=== PATIENT | female | born 1940 | race Caucasian/White ===

== ENCOUNTER 2018-09-09 09:39 | Outpatient (REF) | payer OTHER, SELFPAY ==
[2018-09-09 22:07] LABS: Cholesterol 202 mg/dL (50-200); HDL Cholesterol 71 mg/dL (40-60); LDL CHOLESTEROL 119 mg/dL (<100); TSH 5.15 uIU/mL (0.358-3.74); Triglyceride 32 mg/dL (30-150)
== END 2018-09-09 09:59 ==
LOC: NCHCN 09:39
PROVIDERS: PCP Internal Medicine; Visit Provider Internal Medicine
DX: E03.9 Hypothyroidism, unspecified (principal); Z13.6 Encounter for screening for cardiovascular disorders
CPT/HCPCS: 80061; 83721; 84443

== ENCOUNTER 2019-07-19 21:30 | Outpatient (REF) | payer OTHER, SELFPAY ==
[2019-07-19 21:43] LABS: TSH 18.76 uIU/mL (0.36-3.74)
== END 2019-07-19 21:50 ==
LOC: LBN 21:30
PROVIDERS: PCP Internal Medicine; Visit Provider Internal Medicine
DX: E03.9 Hypothyroidism, unspecified (principal)
CPT/HCPCS: 84443

== ENCOUNTER 2019-08-26 00:34 | Outpatient (CLI) | payer OTHER, SELFPAY ==
--- NOTE | 2019-08-26 | DI.CT_ITS ---
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 COMPARISON: No exams were available for comparison FINDINGS: The patient reportedly has atypical mycobacterial infection. Images obtained through the upper abdom en show unremarkable appearance of visualized portions of liver, spleen, adrenals, and kidneys. Cardiac size is within normal limits. No significant mediastinal or hilar adenopathy seen. No pleur al effusion. No pneumothorax. There are biapical areas of predominantly linear reticulonodular radiodensities with multiple associa edgard calcifications. The findings are consistent with mycobacterial infection. There are areas of tr ee-in-bud opacities and reticular and nodular radiodensities seen in the left lung base involving bot h lower lobe and lingula. There appears to be bronchiectasis associated with these areas. Tree-in-b ud opacities are also seen in the right lower lobe, particularly posteriorly, and also in the right m iddle lobe with reticulonodular radiodensities in these areas. Mild underlying central lobular emphy sema noted. No gross lobar consolidation. The largest intrapulmonary nodule is in the left lung bas e posteriorly and measures about 7 millimeters in diameter; this is most likely associated with infec tious process but should be followed with repeat chest CT after treatment. IMPRESSION: Multifocal reticulonodular and tree-in-bud opacities as described above, the findings as described ar e consistent with atypical mycobacterial infection. Follow-up chest CT recommended following treatment to re-evaluate 7 millimeter nodular left lower lob e posterior basilar radiodensity.
== END 2019-08-26 00:54 ==
PROVIDERS: PCP Internal Medicine; Visit Provider Internal Medicine
DX: A31.0 Pulmonary mycobacterial infection (principal); J98.4 Other disorders of lung; J43.8 Other emphysema
CPT/HCPCS: 71250

== ENCOUNTER 2019-09-03 11:17 | Outpatient (CLI) | payer OTHER, SELFPAY ==
[2019-09-03 13:21] LABS: ALT 57 U/L (14-59); AST 33 U/L (15-37); Albumin 3.3 g/dL (3.4-5.0); Alkaline Phosphatase 93 U/L (46-116); Bilirubin, Direct 0.08 mg/dL (0.00-0.20); Bilirubin, Total 0.4 mg/dL (0.2-1.0); Total Protein 6.7 g/dL (6.4-8.2)
== END 2019-09-03 11:37 ==
PROVIDERS: PCP Internal Medicine; Visit Provider Internal Medicine
DX: A31.9 Mycobacterial infection, unspecified (principal); J98.4 Other disorders of lung
CPT/HCPCS: 36415; 80076; 93005; 93010

== ENCOUNTER 2019-10-07 14:26 | Outpatient (REF) | payer OTHER, SELFPAY ==
[2019-10-07 20:31] LABS: TSH 0.09 uIU/mL (0.36-3.74)
== END 2019-10-07 14:46 ==
LOC: NCHCN 14:26
PROVIDERS: PCP Internal Medicine; Visit Provider Internal Medicine
DX: E03.9 Hypothyroidism, unspecified (principal)
CPT/HCPCS: 84443

== ENCOUNTER 2019-11-19 14:14 | Outpatient (REF) | payer OTHER, SELFPAY ==
[2019-11-19 21:03] LABS: Abs Immature Grans 0.01 k/cumm (0.0-0.09); Absolute Basophil Count 0.02 k/cumm (0.0-0.2); Absolute Eosinophil Count 0.12 k/cumm (0.0-0.7); Absolute Lymphocyte Count 1.61 k/cumm (1.2-3.4); Absolute Neutrophil Count 2.35 k/cumm (1.2-6.7); Basophils % 0.4; Eosinophils % 2.5; HCT 40.3 % (36.0-46.0); HGB 13.3 g/dL (12.0-15.5); Immature Grans % 0.2 %; Lymphocytes % 33.5; Mean Corpuscular Hemoglobin 31.2 pg (27.0-33.0); Mean Corpuscular Volume 94.6 fL (80-95); Mean Platelet Volume 11.4 fL (8.0-11.0); Monocytes % 14.6; Neutrophils % 48.8; Platelet Count 170 x1000/uL (130-400); RBC 4.26 m/cumm (4.00-5.20); White Blood Cell Count 4.81 k/cumm (4.4-10.8)
[2019-11-19 21:25] LABS: ALT 48 U/L (14-59); AST 31 U/L (15-37); Albumin 3.5 g/dL (3.4-5.0); Alkaline Phosphatase 76 U/L (46-116); Bilirubin, Direct 0.25 mg/dL (0.00-0.20); Bilirubin, Total 0.7 mg/dL (0.2-1.0); Total Protein 6.4 g/dL (6.4-8.2)
== END 2019-11-19 14:34 ==
LOC: NCHCN 14:14
PROVIDERS: PCP Internal Medicine; Visit Provider Internal Medicine
DX: A31.0 Pulmonary mycobacterial infection (principal)
CPT/HCPCS: 80076; 85025

== ENCOUNTER 2019-12-07 15:18 | Outpatient (REF) | payer OTHER, SELFPAY ==
[2019-12-07 20:54] LABS: TSH 0.68 uIU/mL (0.36-3.74)
== END 2019-12-07 15:38 ==
LOC: NCHCN 15:18
PROVIDERS: PCP Internal Medicine; Visit Provider Internal Medicine
DX: E03.9 Hypothyroidism, unspecified (principal)
CPT/HCPCS: 84443

== ENCOUNTER 2020-05-31 11:09 | Outpatient (REF) | payer OTHER, SELFPAY | END 2020-05-31 11:29 | LOC: NCHCN 11:09 | PROVIDERS: PCP Internal Medicine; Visit Provider Internal Medicine | DX: E03.9 Hypothyroidism, unspecified (principal) | CPT/HCPCS: 84443 ==

== ENCOUNTER 2020-07-17 15:47 | Outpatient (REF) | payer OTHER, SELFPAY ==
[2020-07-17 14:42] LABS: TSH 0.26 uIU/mL (0.36-3.74)
== END 2020-07-17 15:48 | disposition home or self-care (01) ==
LOC: NCHCN 15:47
PROVIDERS: PCP Internal Medicine; Visit Provider Internal Medicine
DX: E03.9 Hypothyroidism, unspecified (principal)
CPT/HCPCS: 84443

== ENCOUNTER 2020-09-20 13:20 | Outpatient (REF) | payer OTHER, SELFPAY ==
[2020-09-20 13:46] LABS: TSH 0.47 uIU/mL (0.36-3.74)
== END 2020-09-20 13:21 | disposition home or self-care (01) ==
LOC: NCHCN 13:20
PROVIDERS: PCP Internal Medicine; Visit Provider Internal Medicine
DX: E03.9 Hypothyroidism, unspecified (principal)
CPT/HCPCS: 84443

== ENCOUNTER 2020-09-25 15:08 | Outpatient (REF) | payer OTHER, SELFPAY ==
[2020-09-25 21:18] LABS: Abs Immature Grans 0.01 10^3/uL (0.0-0.06); Absolute Basophil Count 0.03 10^3/uL (0.0-0.2); Absolute Eosinophil Count 0.13 10^3/uL (0.0-0.7); Absolute Lymphocyte Count 1.15 10^3/uL (1.2-3.4); Absolute Monocyte Count 0.67 10^3/uL (0.1-0.8); Absolute Neutrophil Count 4.07 10^3/uL (1.2-6.7); Basophils % 0.5; Eosinophils % 2.1; HCT 39.7 % (36.0-46.0); HGB 13.1 g/dL (11.2-15.7); Immature Grans % 0.2; MCH 32.5 pg (27.0-33.0); MCV 98.5 fL (80-95); MPV 11.6 fL (8.0-11.0); Monocytes % 11.1; Neutrophils % 67.1; Nucleated RBC 0 %; Platelet Count 138 10^3/uL (130-400); RBC 4.03 10^6/uL (3.93-5.22); RDW 12.6 % (11.7-14.6); RDW-SD 45.9 fL; WBC 6.06 10^3/uL (4.4-10.8)
[2020-09-25 21:52] LABS: Vitamin D 25 Total 46.8 ng/mL (30-100)
[2020-09-25 21:53] LABS: Ferritin 64 ng/mL (8-252); Vitamin B12 865 pg/mL (193-986)
== END 2020-09-25 15:09 | disposition home or self-care (01) ==
LOC: NCHCN 15:08
PROVIDERS: PCP Internal Medicine; Visit Provider Internal Medicine
DX: F32.9 Major depressive disorder, single episode, unspecified (principal); R53.83 Other fatigue; M81.0 Age-related osteoporosis without current pathological fracture; R06.09 Other forms of dyspnea
CPT/HCPCS: 82306; 82607; 82728; 85025

== ENCOUNTER 2021-06-18 18:18 | Outpatient (REF) | payer OTHER, SELFPAY ==
[2021-06-18 21:24] LABS: Abs Immature Grans 0.02 10^3/uL (0.0-0.06); Absolute Basophil Count 0.03 10^3/uL (0.0-0.2); Absolute Eosinophil Count 0.09 10^3/uL (0.0-0.7); Absolute Lymphocyte Count 1.61 10^3/uL (1.2-3.4); Absolute Monocyte Count 0.74 10^3/uL (0.1-0.8); Absolute Neutrophil Count 3.84 10^3/uL (1.2-6.7); Basophils % 0.5; ESR 5 mm/hr (0-30); Eosinophils % 1.4; HCT 41.2 % (36.0-46.0); HGB 13.4 g/dL (11.2-15.7); Immature Grans % 0.3; Lymphocytes % 25.4; MCH 31.6 pg (27.0-33.0); MCHC 32.5 % (32.0-36.0); MCV 97.2 fL (80-95); MPV 11.4 fL (8.0-11.0); Monocytes % 11.7; Neutrophils % 60.7; Nucleated RBC 0 %; Platelet Count 183 10^3/uL (130-400); RBC 4.24 10^6/uL (3.93-5.22); RDW 12.8 % (11.7-14.6); RDW-SD 45.4 fL; WBC 6.33 10^3/uL (4.4-10.8)
[2021-06-18 22:05] LABS: ALT 58 U/L (14-59); AST 32 U/L (15-37); Albumin 3.4 g/dL (3.4-5.0); Alkaline Phosphatase 66 U/L (46-116); Anion Gap 3.9 mmol/L (3-11); BUN 23 mg/dL (7-18); Bilirubin, Total 0.2 mg/dL (0.2-1.0); C-Reactive Protein 0.11 mg/dL (0.0-0.3); CO2 30.1 mmol/L (21.0-32.0); CREATININE 0.5 mg/dL (0.55-1.02); Calcium 8.8 mg/dL (8.5-10.1); Chloride 109 mmol/L (98-107); Glucose 90 mg/dL (74-106); Potassium 4.3 mmol/L (3.5-5.1); Sodium 143 mmol/L (136-145); TSH (W/Ref FT4) 0.08 uIU/mL (0.36-3.74); Total Protein 6.4 g/dL (6.4-8.2)
[2021-06-18 22:21] LABS: FREE T4 1.49 ng/dL (0.76-1.46)
[2021-06-20 16:49] LABS: COVID-19 RT-PCR UVMMC Result Negative (Negative)
== END 2021-06-18 18:19 | disposition home or self-care (01) ==
LOC: NCHCN 18:18
PROVIDERS: PCP Internal Medicine; Visit Provider Family Medicine
DX: R19.7 Diarrhea, unspecified (principal); Z20.822 Contact with and (suspected) exposure to COVID-19; J06.9 Acute upper respiratory infection, unspecified
CPT/HCPCS: 80053; 85652; U0003; 84439; 84443; 85025; 86140

== ENCOUNTER 2021-08-20 16:16 | Outpatient (REF) | payer OTHER, SELFPAY ==
[2021-08-20 22:05] LABS: TSH 0.05 uIU/mL (0.36-3.74)
== END 2021-08-20 16:17 | disposition home or self-care (01) ==
LOC: NCHCN 16:16
PROVIDERS: PCP Internal Medicine; Visit Provider Family Medicine
DX: E03.9 Hypothyroidism, unspecified (principal)
CPT/HCPCS: 84443

== ENCOUNTER 2021-08-30 15:31 | Outpatient (REF) | payer MEDICARE, SELFPAY ==
--- OUTSIDE RECORDS SUMMARY | 2021-08-30 15:34 | XMS_ITS | CCD ---
:1940 Author Care Team Providers Name Role Phone ELISEO HENLEY Attending Physician Unavailable Vital Signs Unknown or Not Available. Allergies Allergy Code Allergy Type Reaction Status No Known Environmental 0 No known environmental Active Allergies allergies AZITHROMYCIN 12958 Drug allergy Hives Active Procedures Unknown or Not Available. History of Immunizations Unknown or Not Available. Problems Unknown or Not Available. Results CREATININE SERUM - Collect Date/Time: 15:17 Test Name Code Test Result Test Units Test Ref Range CREATININE 2160-0 0.59 mg/dL L=0.51 H=0.95 AGE 80 years eGFR (non-Afr.Amer.) 54825-0 99 mL/min eGFR (Afr-[place] Korean) 40767-3 119 mL/min CBC W/ DIFFERENTIAL - Collect Date/Time: 02/06/2021 15:17 Test Name Code Test Result Test Units Test Ref Range WBC 6690-2 5.46 th/cmm L=5.00 H=10.00 NEUT % 58.1 % L=40.0 H=80.0 LYMPH % 26.9 % L=10.0 H=50.0 MONO % 73637-6 9.9 % L=2.0 H=12.0 EOS % 4.2 % L=0.0 H=8. 0 BASO % 0.7 % L=0.0 H=3. 0 IG % 2514-8 0.2 % L=0.0 H=1. 1 NRBC % 67093-1 0.0 % L=0.0 H=0. 0 NEUT abs count 751-8 3.2 th/cmm L=1.6 H= 8.4 LYMPH abs count 731-0 1.5 th/cmm L=1.5 H =4.0 MONO abs count 742-7 0.5 th/cmm L=0.2 H= 1.0 EOS abs count 711-2 0.2 th/cmm L=0.0 H=0 .5 BASO abs count 704-7 0.0 th/cmm L=0.0 H= 0.2 IG abs count 42570-1 0.0 th/cmm L=0.0 H=0. 1 NRBC abs count 67086-6 0.0 mil/cmm L=0.0 H= 0.0 RBC 789-8 4.12 mil/cmm L=3.90 H=5.40 HEMOGLOBIN 718-7 13.4 gm/dL L=12.0 H=16.0 HEMATOCRIT 4544-3 40 % L=37 H=47 MCV 787-2 98 fL L=82 H=92 MCH 785-6 32.5 pg L=27.0 H=31.0 MCHC 786-4 33.2 % L=32.0 H=36.0 RDW-SD 788-0 46.5 fL L=39.0 H=49.0 PLATELET COUNT 777-3 115 th/cmm L=150 H= 450 PT PROTHROMBIN TIME - Collect Date/Time: 02/06/2021 15:17 Test Name Code Test Result Test Units Test Ref Range PROTIME 5902-2 10.5 seconds L=9.3 H=11 .4 INR 10345-3 1.03 L=2.00 H=3. 00 Active Medications Unknown or Not Available. Medications Administered During Visit Unknown or Not Available. Encounters Encounter Diagnosis Diagnosis Code Start Date Mycobacteriosis [id number] 02/06/2021 Social History Smoking Status Code Start Date End Date Former smoker [id number] 06/09/1957 06/09/1991 Patient Decision Aids Unknown or Not Available. Discharge Instructions You were admitted to [facility] on 02/06/2021 10:52 with a principal diagnosis of Mycobacterial infection, un specified You had the following tests done: CBC W/ DIFFERENTIAL CREATININE SERUM PT PROTHROMBIN TIME You were discharged from [facility] on 02/06/2021 10:52 Should you have any questions prior to d ischarge, please contact a member of your healthcare team. If you have left the ho spital and have any questions, please contact your primary care physician. Chief Complaint and Reason For Visit Unknown or Not Available. Function Status Unknown or Not Available. Plan of Care Unknown or Not Available. Referral/Transition of Care Unknown or Not Available.
--- OUTSIDE RECORDS SUMMARY | 2021-08-30 15:34 | XMS_ITS | CCD ---
:1940 Author Care Team Providers Name Role Phone ELISEO HENLEY Attending Physician Unavailable Vital Signs Unknown or Not Available. Allergies Allergy Code Allergy Type Reaction Status No Known Environmental 0 No known environmental Active Allergies allergies AZITHROMYCIN 08913 Drug allergy Hives Active Procedures Unknown or Not Available. History of Immunizations Unknown or Not Available. Problems Unknown or Not Available. Results Unknown or Not Available. Active Medications Unknown or Not Available. Medications Administered During Visit Unknown or Not Available. Encounters Encounter Diagnosis Diagnosis Code Start Date Encounter for preprocedural cardiovascular [id number] 02/06/2021 examination Social History Smoking Status Code Start Date End Date Former smoker [id number] 06/09/1957 06/09/1991 Patient Decision Aids Unknown or Not Available. Discharge Instructions You were admitted to [facility] on 02/06/2021 14:43 with a principal diagnosis of Encounter for preprocedural cardiovascular examination You were discharged from [facility] on 02/06/2021 14:43 Should you have any questions prior to [...]
--- OUTSIDE RECORDS SUMMARY | 2021-08-30 15:34 | XMS_ITS ---
:1940 Author Care Team Providers Name Role Phone [facility] Primary Care Provider [phone] AMI CHURCHILL DO [employer] Machine Operator [phone] Allergies Code Code System Name Reaction Severity Status Onset Bee Venom ? ? Active ? Protein (Honey Bee) 09337 RxNorm Azithromycin ? ? Deactivated ? Medications Name Status Start Date Stop Date ? ? albuterol sulfate 2.5 mg/3 mL (0.083 %) solution for nebulizatio n Active ? Not available Inhale 3 mL every day by nebulization route as needed. alendronate 70 mg tablet Active ? Not jigar ilable clarithromycin 500 mg tablet Completed ? escitalopram 10 mg tablet Completed ? 2019 escitalopram 20 mg tablet Active ? Not av ailable Take 1 tablet every day by oral route. ethambutol 400 mg tablet Active ? Not jigar ilable Take 3 tablets 3 times a week by oral route. Flonase Allergy Relief 50 mcg/actuation nasal spray,suspension A ctive ? Not available SPRAY 1 - 2 SPRAYS (50 - 100 MCG) IN EA CH NOSTRIL BY INTRANASAL ROUTEONCE DAILY NEEDED Fluad 2017- 65yr up(PF)45 mcg(15 Completed ? 02/05/2019 mcgx3)/0.5 mL intramuscular syringe Flucelvax Quad 60 mcg (15 mcg Active ? Not available x 4)/0.5 mL intramuscular susp GaviLyte-G 236 gram-22.74 gram-6.74 Completed ? 02/05/2019 gram-5.86 gram oral solution Hyper-Monroe 7 % solution for nebulization Active ? Not available Inhale 4 mL twice a day by inhalation route. levothyroxine 137 mcg tablet Completed ? levothyroxine 150 mcg tablet Active ? Not available Take 1 tablet every day by oral route. Mucinex 600 mg tablet, extended release Completed ? 04/14/2020 Take 1 tablet every 12 hours by oral route as needed. multivitamin Active ? Not available 1 tab daily mupirocin 2 % topical ointment Completed ? 0 02/05/2019 rifampin 300 mg capsule Active ? Not avai lable Take 2 capsules 3 times a week by oral route. Shingrix (PF) 50 mcg/0.5 mL Completed ? 01/09 intramuscular suspension, kit Vitamin C 500 mg tablet Active ? Not avai lable Take 1 tablet every day by oral route. Zithromax 500 mg tablet Active ? Not avai lable Take 1 tablet 3 times a week by oral route for 3 days. Problems Name Status Onset Date Source ? Rhinitis Active 01/28/2019 ? Posterior Rhinorrhea Active 01/28/2019 ? Ulcer of Nasal Septum Active 01/28/2019 ? Chronic Cough Active 01/28/2019 ? 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 Infection Bronchiectasis Active 10/08/2019 ? Carcinoma in Situ of Breast Active ? ? Hypothyroidism Active ? ? Anxiety Active ? ? Depressive Disorder Active ? ? Kidney Stone Active ? ? Osteoporosis Active ? ? Procedures Date Name Performed by ? ? Lumpectomy of Left Breast Information no t available 02/05/2019 CT, Chest, W/o Contrast (Radiology[facility]) [address], [place] [address] ([address]) 02/05/2019 CT, Sinuses, W/wo Contrast [facility] (Radiology-Echos) [address], [place] [address] (Work [address]) 08/13/2019 CT, Chest, W/o Contrast Xray [facility] [address] [place], [place] [address] ([address]) 02/04/2020 CT, Chest, W/o Contrast (Radiology-Echos) [address], [place] [address] (Work Place) Results Lab Results Date Name Specimen Result Interpretation Description Value Range Status Address ? 04/27/2020 Bacteria N/A ? Final microbiology ? Final [place] Identification, results Hospital Lab Unspecified (Inte rnal): Specimen [address] 04/27/2020 Bacteria N/A ? Final microbiology ? Final [place] Identification, results Hospital Lab Unspecified (Inte rnal): Specimen [address] 04/27/2020 Bacteria N/A ? Final microbiology ? Final [facility] Identification, results Hospital Lab Unspecified (Inte rnal): Specimen [address] , [facility] t 04/27/2020 Bacteria N/A ? Final microbiology ? Final [facility] Identification, results Hospital Lab Unspecified (Inte rnal): Specimen [address] [facility] 04/27/2020 Fungus, Culture, MISC ? Fungus no fungi seen ? Final [facility] Unspecified [facility] Specimen (Interna l): [address] ? ? MISC ? Result no fungi ? Final [place] isolated Hospital Lab (Internal) : [address] t 04/27/2020 Fungus, Culture, MISC ? Fungus no fungi seen ? Final [facility] Unspecified [facility] Specimen (Interna l): [address] ? ? MISC ? Result no fungi ? Final [facility] arnie isolated Hospital Lab (Internal) : [address] t 04/27/2020 Fungus, Culture, MISC ? Fungus no fungi seen ? Final [facility] Unspecified [facility] Lab Specimen (Interna l): [address] ? ? MISC ? Result no fungi ? Final [facility] arnie isolated Hospital Lab (Internal) : [address] t 04/27/2020 Acid Fast Stain SPT ? Acid Fast no acid fast ? Final [facility] bacilli seen Hosp ital Lab (Internal) : [address] t 04/27/2020 Acid Fast Stain SPT ? Acid Fast no acid fast ? Final [facility] bacilli seen Hosp ital Lab (Internal) : [address] t 04/27/2020 Culture, Afb SPT ABNORMA Result mycobacterium ? Final [facility] (Acid-fast L avium complex Hospital Lab Bacilli) (Interna l): [address] t 04/27/2020 Culture, Afb SPT ABNORMA Result mycobacterium ? Final [facility] (Acid-fast L avium complex Hospital Lab Bacilli) (Interna l): [address] t 04/17/2020 CBC W/ Auto Diff ? No ? ? ? [facility] recorded. Dept: [address] 02/23/2020 CBC W/ Auto Diff ? No ? ? ? observatio n recorded. 11/19/2019 Hepatic Function ? No ? ? ? [facility] Panel, [facility] [place] [facility] recorded. Hospita l Lab: [address], [place] 11/19/2019 CBC W/ Auto Diff ? No ? ? ? [facility] recorded. Hospita [facility] Lab: [address], [place] 09/03/2019 Hepatic Function ? No ? ? ? [facility] Panel, Serum [facility] recorded. Hospita l: [address], [place] Past Encounters 07/07/2020 Bronchiectasis; Pulmonary Mycobacterium Avium Complex Infection Rosa Mackey MD: [address] [place] [address] Dr [address] [facility] [address] [address], Ph. 04/14/2020 Pulmonary Mycobacterium Avium Complex In fection; Lung Mass Rosa Mackey MD: [address] [place] [address] Dr [address], [place] [address], Ph. Social History Tobacco Smoking Status Former Smoker Notes: quit 30 years ago. Smoked 20 years 1 ppd Vaccine List Vaccine Type influenza, injectable, quadrivalent 04/09/2019 03/08/2020 pneumococcal conjugate PCV 13 03/30/2015 pneumococcal polysaccharide PPV23 04/07/2016 Plan of Care Reminders Provider Appointments None ? ? recorded. Lab None ? ? recorded. Referral None ? ? recorded. Procedures None ? ? recorded. Surgeries None ? ? recorded. Imaging None ? ? recorded. Vitals 07/07/2020 01:45PM Office 15 Height Weight BMI 166.37 cm 53 kg 19.1 kg/m2 04/14/2020 02:15PM Office 30 Height Weight BMI Blood Pressure 166.37 cm 53.3 kg 19.3 kg/m2 118/62 mm[Hg] 02/04/2020 10:30AM Office 15 Height Weight BMI Blood Pressure 166.37 cm 52 kg 18.8 kg/m2 120/60 mm[Hg] 11/18/2019 10:45AM Office 15 Height Weight BMI Blood Pressure 166.37 cm 53.15 kg 19.2 kg/m2 122/60 mm[Hg] 10/08/2019 09:00AM Office 15 Height Weight BMI 166.37 cm 48.5 kg 17.5 kg/m2 09/03/2019 09:00AM Office 15 Height 166.37 cm 08/13/2019 10:15AM Office 30 Height Weight BMI Blood Pressure 166.37 cm 51.4 kg 18.6 kg/m2 128/70 mm[Hg] 04/23/2019 03:00PM Office 15 Height Weight BMI Blood Pressure 166.37 cm 54.4 kg 19.7 kg/m2 148/80 mm[Hg] 02/05/2019 02:45PM New Patient 45 Height Weight BMI Blood Pressure 166.37 cm 58.6 kg 21.2 kg/m2 132/70 mm[Hg]
--- OUTSIDE RECORDS SUMMARY | 2021-08-30 15:34 | XMS_ITS | CCD ---
:1940 Author Care Team Providers Name Role Phone ELISEO HENLEY Attending Physician Unavailable Vital Signs Unknown or Not Available. Allergies Allergy Code Allergy Type Reaction Status No Known Environmental 0 No known environmental Active Allergies allergies AZITHROMYCIN 23595 Drug allergy Hives Active Procedures Unknown or Not Available. History of Immunizations Unknown or Not Available. Problems Unknown or Not Available. Results [facility] COVID RHEONIX - Collect Date/Time : 02/05/2021 12:38 Test Name Code Test Result Test Units Test Ref Range SOURCE= Anterior nasal N/A Tier- PRE-OP N/A SARS COV2 RNA: 33943-3 NEGATIVE N/A REFERENCE RAN GE: NEGAT Active Medications Unknown or Not Available. Medications Administered During Visit Unknown or Not Available. Encounters Encounter Diagnosis Diagnosis Code Start Date Encounter for preprocedural laboratory [id number] 0 02/05/2021 examination Social History Smoking Status Code Start Date End Date Former smoker [id number] 06/09/1957 06/09/1991 Patient Decision Aids Unknown or Not Available. Discharge Instructions You were admitted to [facility] on 02/05/2021 21:32 with a principal diagnosis of Encounter for preprocedural laboratory examination You had the following tests done: [facility] COVID RHEONIX You were discharged from [facility] on 02/05/2021 21:32 Should you have any questions prior to [...]
[2021-08-30 21:26] LABS: C-Reactive Protein 0.21 mg/dL (0.0-0.3)
[2021-08-30 21:33] LABS: ESR 15 mm/hr (0-30)
== END 2021-08-30 15:32 | disposition home or self-care (01) ==
LOC: NCHCN 15:31
PROVIDERS: PCP Internal Medicine; Visit Provider Internal Medicine
DX: G44.89 Other headache syndrome (principal)
CPT/HCPCS: 85652; 86140

== ENCOUNTER 2021-09-26 17:29 | Outpatient (REF) | payer MEDICARE, SELFPAY ==
[2021-09-26 20:59] LABS: TSH 0.13 uIU/mL (0.36-3.74)
== END 2021-09-26 17:30 | disposition home or self-care (01) ==
LOC: NCHCN 17:29
PROVIDERS: PCP Internal Medicine; Visit Provider Family Medicine
DX: E03.9 Hypothyroidism, unspecified (principal)
CPT/HCPCS: 84443

== ENCOUNTER 2021-11-12 13:24 | Outpatient (REF) | payer MEDICARE, SELFPAY ==
[2021-11-12 21:08] LABS: HCT 41.1 % (36.0-46.0); HGB 13.7 g/dL (11.2-15.7); MCH 31.7 pg (27.0-33.0); MCHC 33.3 % (32.0-36.0); MCV 95 fL (80-95); MPV 12.1 fL (8.0-11.0); Platelet Count 184 10^3/uL (130-400); RBC 4.32 10^6/uL (3.93-5.22); RDW 13.6 % (11.7-14.6); RDW-SD 47.8 fL; WBC 7.52 10^3/uL (4.4-10.8)
[2021-11-12 21:27] LABS: ALT 31 U/L (14-59); AST 23 U/L (15-37); Albumin 3.5 g/dL (3.4-5.0); Alkaline Phosphatase 68 U/L (46-116); Anion Gap 5.4 mmol/L (3-11); BUN 21 mg/dL (7-18); Bilirubin, Total 0.3 mg/dL (0.2-1.0); CO2 27.6 mmol/L (21.0-32.0); CREATININE 0.6 mg/dL (0.55-1.02); Chloride 103 mmol/L (98-107); Glucose 119 mg/dL (74-106); Potassium 3.7 mmol/L (3.5-5.1); Sodium 136 mmol/L (136-145); TSH 0.53 uIU/mL (0.36-3.74); Total Protein 6.5 g/dL (6.4-8.2)
[2021-11-13 06:44] LABS: Abs Immature Grans 0.02 10^3/uL (0.0-0.06); Absolute Basophil Count 0.04 10^3/uL (0.0-0.2); Absolute Eosinophil Count 0.08 10^3/uL (0.0-0.7); Absolute Lymphocyte Count 1.81 10^3/uL (1.2-3.4); Absolute Monocyte Count 0.89 10^3/uL (0.1-0.8); Absolute Neutrophil Count 4.94 10^3/uL (1.2-6.7); Basophils % 0.5; Immature Grans % 0.3; Lymphocytes % 23.3; Monocytes % 11.4; Neutrophils % 63.5
== END 2021-11-12 13:25 | disposition home or self-care (01) ==
LOC: NCHCN 13:24
PROVIDERS: PCP Internal Medicine; Visit Provider Family Medicine
DX: E03.9 Hypothyroidism, unspecified (principal); R63.4 Abnormal weight loss; R19.7 Diarrhea, unspecified; R61 Generalized hyperhidrosis; M81.0 Age-related osteoporosis without current pathological fracture; R59.0 Localized enlarged lymph nodes
CPT/HCPCS: 80053; 85027; 84443; 85025

== ENCOUNTER 2022-02-27 15:24 | Outpatient (REF) | payer MEDICARE, SELFPAY ==
[2022-02-27 21:29] LABS: TSH 0.44 uIU/mL (0.36-3.74)
== END 2022-02-27 15:25 | disposition home or self-care (01) ==
LOC: NCHCN 15:24
PROVIDERS: PCP Internal Medicine; Visit Provider Internal Medicine
DX: E03.9 Hypothyroidism, unspecified (principal)
CPT/HCPCS: 84443

== ENCOUNTER 2022-05-13 15:51 | Outpatient (REF) | payer MEDICARE, SELFPAY ==
[2022-05-13 21:11] LABS: TSH 0.93 uIU/mL (0.36-3.74)
== END 2022-05-13 15:52 | disposition home or self-care (01) ==
LOC: NCHCN 15:51
PROVIDERS: PCP Internal Medicine; Visit Provider Internal Medicine
DX: E03.9 Hypothyroidism, unspecified (principal); R53.83 Other fatigue
CPT/HCPCS: 84443

== ENCOUNTER 2022-08-26 15:06 | Outpatient (REF) | payer MEDICARE, SELFPAY ==
[2022-08-26 21:36] LABS: Abs Immature Grans 0.06 10^3/uL (0.0-0.06); Absolute Basophil Count 0.05 10^3/uL (0.0-0.2); Absolute Eosinophil Count 0.33 10^3/uL (0.0-0.7); Absolute Lymphocyte Count 1.59 10^3/uL (1.2-3.4); Absolute Monocyte Count 1.11 10^3/uL (0.1-0.8); Basophils % 0.4; Eosinophils % 2.8; HCT 40.1 % (36.0-46.0); Immature Grans % 0.5; Lymphocytes % 13.3; MCH 31.1 pg (27.0-33.0); MCHC 32.4 % (32.0-36.0); MCV 96 fL (80-95); Monocytes % 9.3; Neutrophils % 73.7; Platelet Count 284 10^3/uL (130-400); RBC 4.18 10^6/uL (3.93-5.22); RDW 13.4 % (11.7-14.6); WBC 11.92 10^3/uL (4.4-10.8)
[2022-08-26 21:41] LABS: Absolute Neutrophil Count 8.79 10^3/uL (1.2-6.7)
[2022-08-26 21:58] LABS: TSH 2.98 uIU/mL (0.36-3.74)
== END 2022-08-26 15:07 | disposition home or self-care (01) ==
LOC: NCHCN 15:06
PROVIDERS: PCP Internal Medicine; Visit Provider Internal Medicine
DX: E03.9 Hypothyroidism, unspecified (principal); R53.83 Other fatigue
CPT/HCPCS: 84443; 85025

== ENCOUNTER 2022-12-09 16:01 | Outpatient (REF) | payer MEDICARE, SELFPAY | END 2022-12-09 16:02 | disposition home or self-care (01) | LOC: NCHCN 16:01 | PROVIDERS: PCP Internal Medicine; Visit Provider Internal Medicine | DX: A31.0 Pulmonary mycobacterial infection (principal) | CPT/HCPCS: 87116; 87206 ==

== ENCOUNTER 2022-12-16 16:28 | Outpatient (REF) | payer MEDICARE, SELFPAY | END 2022-12-16 16:29 | disposition home or self-care (01) | LOC: NCHCN 16:28 | PROVIDERS: PCP Internal Medicine; Visit Provider Internal Medicine | DX: A31.0 Pulmonary mycobacterial infection (principal); R53.83 Other fatigue | CPT/HCPCS: 87116; 87206; 87070; 87205 ==

== ENCOUNTER 2022-12-24 13:54 | Outpatient (REF) | payer MEDICARE, SELFPAY | END 2022-12-24 13:55 | disposition home or self-care (01) | LOC: NCHCN 13:54 | PROVIDERS: PCP Internal Medicine; Visit Provider Internal Medicine | DX: A31.2 Disseminated mycobacterium avium-intracellulare complex (DMAC) (principal); J47.9 Bronchiectasis, uncomplicated | CPT/HCPCS: 87116; 87206 ==

== ENCOUNTER 2022-12-26 17:35 | Outpatient (REF) | payer MEDICARE, SELFPAY ==
[2023-01-23 08:35] LABS: Fungus Smear No Fungi Seen
== END 2022-12-26 17:36 | disposition home or self-care (01) ==
LOC: NCHCN 17:35
PROVIDERS: PCP Internal Medicine; Visit Provider Internal Medicine
DX: A31.2 Disseminated mycobacterium avium-intracellulare complex (DMAC) (principal)
CPT/HCPCS: 87077; 87102; 87116; 87206; 87070; 87205

== ENCOUNTER 2023-08-14 15:45 | Outpatient (REF) | payer MEDICARE, SELFPAY ==
[2023-08-14 21:21] LABS: TSH (W/Ref FT4) 0.46 uIU/mL (0.36-3.74)
== END 2023-08-14 15:46 | disposition home or self-care (01) ==
LOC: NCHCN 15:45
PROVIDERS: PCP Internal Medicine; Visit Provider Internal Medicine
DX: E03.9 Hypothyroidism, unspecified (principal)
CPT/HCPCS: 84443

== ENCOUNTER 2023-12-01 15:11 | Outpatient (REF) | payer MEDICARE, SELFPAY ==
[2023-12-01 21:30] LABS: HCT 36.3 % (36.0-46.0); HGB 11.1 g/dL (11.2-15.7); MCH 27.5 pg (27.0-33.0); MCHC 30.6 % (32.0-36.0); MCV 90 fL (80-95); MPV 11.5 fL (8.0-11.0); Platelet Count 258 10^3/uL (130-400); RBC 4.03 10^6/uL (3.93-5.22); RDW 14.6 % (11.7-14.6); RDW-SD 48.3 fL; WBC 9.12 10^3/uL (4.4-10.8)
[2023-12-01 22:15] LABS: ALT 26 U/L (14-59); AST 26 U/L (15-37); Albumin 3.3 g/dL (3.4-5.0); Alkaline Phosphatase 76 U/L (46-116); Anion Gap 6.1 mmol/L (3-11); BUN 27 mg/dL (7-18); Bilirubin, Total 0.28 mg/dL (0.2-1.0); CO2 31.9 mmol/L (21.0-32.0); CREATININE 0.6 mg/dL (0.55-1.02); Calcium 9.8 mg/dL (8.5-10.1); Chloride 105 mmol/L (98-107); Estimated GFR 90.12 (mL/min/1.73m2); Glucose 107 mg/dL (74-106); Sodium 143 mmol/L (136-145); TSH 0.79 uIU/Ml (0.36-3.74); Total Protein 7.5 g/dL (6.4-8.2); Vitamin D 25 Total 43.5 ng/mL (30-100)
[2023-12-02 16:53] LABS: Ferritin 26 ng/mL (8-252); Vitamin B12 851 pg/mL (193-986)
[2023-12-02 17:07] LABS: Iron 27 ug/dL (50-170)
== END 2023-12-01 15:12 | disposition home or self-care (01) ==
LOC: NCHCN 15:11
PROVIDERS: PCP Internal Medicine; Visit Provider Internal Medicine
DX: D64.9 Anemia, unspecified (principal); E03.9 Hypothyroidism, unspecified; R53.83 Other fatigue; R79.89 Other specified abnormal findings of blood chemistry; M81.0 Age-related osteoporosis without current pathological fracture; R68.89 Other general symptoms and signs
CPT/HCPCS: 80053; 82306; 85027; 82607; 82728; 83540; 84443

== ENCOUNTER 2024-02-20 15:32 | Outpatient (REF) | payer MEDICARE, SELFPAY ==
[2024-02-20 15:43] LABS: HGB 12.6 g/dL (11.2-15.7); MCHC 31.5 % (32.0-36.0); MCV 92 fL (80-95); MPV 11.4 fL (8.0-11.0); Platelet Count 267 10^3/uL (130-400); RBC 4.35 10^6/uL (3.93-5.22); RDW 17.4 % (11.7-14.6); RDW-SD 59.5 fL; WBC 11.42 10^3/uL (4.4-10.8)
[2024-02-20 16:42] LABS: Iron 53 ug/dL (50-170); Total Iron Binding Capacity 325 ug/dL (250-450); Transferrin Sat 16 % (15-50)
[2024-02-20 17:11] LABS: Ferritin 66 ng/mL (8-252); TSH 0.27 uIU/Ml (0.36-3.74); Vitamin B12 970 pg/mL (193-986)
== END 2024-02-20 15:33 | disposition home or self-care (01) ==
LOC: NCHCN 15:32
PROVIDERS: PCP Internal Medicine; Visit Provider Internal Medicine
DX: D50.9 Iron deficiency anemia, unspecified (principal); E03.9 Hypothyroidism, unspecified
CPT/HCPCS: 85027; 82607; 82728; 83540; 83550; 84443

== ENCOUNTER 2024-04-27 16:37 | Outpatient (REF) | payer MEDICARE, SELFPAY ==
[2024-04-27 15:19] LABS: TSH (W/Ref FT4) 1.52 uIU/mL (0.36-3.74)
== END 2024-04-27 16:38 | disposition home or self-care (01) ==
LOC: NCHCN 16:37
PROVIDERS: PCP Internal Medicine; Visit Provider Internal Medicine
DX: E03.9 Hypothyroidism, unspecified (principal)
CPT/HCPCS: 84443

== ENCOUNTER 2024-06-14 15:04 | Outpatient (REF) | payer MEDICARE, SELFPAY | END 2024-06-14 15:05 | disposition home or self-care (01) | LOC: NCHCN 15:04 | PROVIDERS: PCP Internal Medicine; Visit Provider Internal Medicine | DX: J47.9 Bronchiectasis, uncomplicated (principal) | CPT/HCPCS: 87077; 87116; 87206; 87070; 87186; 87205 ==

== ENCOUNTER 2024-06-15 19:27 | Outpatient (REF) | payer MEDICARE, SELFPAY | END 2024-06-15 19:28 | disposition home or self-care (01) | LOC: NCHCN 19:27 | PROVIDERS: PCP Internal Medicine; Visit Provider Internal Medicine | DX: J47.9 Bronchiectasis, uncomplicated (principal) | CPT/HCPCS: 87070; 87205 ==

== ENCOUNTER 2024-08-16 21:53 | Outpatient (REF) | payer MEDICARE, SELFPAY ==
[2024-08-16 22:01] LABS: HCT 38.2 % (36.0-46.0); HGB 12.3 g/dL (11.2-15.7); MCH 31.2 pg (27.0-33.0); MCHC 32.2 % (32.0-36.0); MCV 97 fL (80-95); MPV 10.7 fL (8.0-11.0); Platelet Count 237 10^3/uL (130-400); RBC 3.94 10^6/uL (3.93-5.22); RDW 13.7 % (11.7-14.6); RDW-SD 49.1 fL; WBC 9.84 10^3/uL (4.4-10.8)
[2024-08-16 22:29] LABS: TSH 0.52 uIU/mL (0.36-3.74)
== END 2024-08-16 21:54 | disposition home or self-care (01) ==
LOC: NCHCN 21:53
PROVIDERS: PCP Internal Medicine; Visit Provider Internal Medicine
DX: E03.9 Hypothyroidism, unspecified (principal)
CPT/HCPCS: 85027; 84443

== ENCOUNTER 2024-10-25 19:07 | Outpatient (REF) | payer MEDICARE, SELFPAY ==
[2024-10-29 14:51] LABS: Histoplasma/Blastomyces Result Not Detected (NotDetected); Histoplasma/Blastomyces Value Not Detected
== END 2024-10-25 19:08 | disposition home or self-care (01) ==
LOC: NCHCN 19:07
PROVIDERS: PCP Internal Medicine; Visit Provider Internal Medicine
DX: J47.9 Bronchiectasis, uncomplicated (principal)
CPT/HCPCS: 87077; 87449; 87070; 87186; 87205

== ENCOUNTER 2025-06-08 14:03 | Outpatient (REF) | payer MEDICARE, SELFPAY ==
[2025-06-08 15:49] LABS: Anion Gap 7.2 mmol/L (3-11); BUN 21 mg/dL (9-23); CO2 29.8 mmol/L (20.0-31.0); Calcium 9.5 mg/dL (8.3-10.6); Chloride 106 mmol/L (98-107); Glucose 93 mg/dL (74-106); Potassium 3.6 mmol/L (3.5-5.1); Sodium 143 mmol/L (136-145)
== END 2025-06-08 14:04 | disposition home or self-care (01) ==
LOC: NCHCN 14:03
PROVIDERS: PCP Internal Medicine; Visit Provider Internal Medicine
DX: R03.0 Elevated blood-pressure reading, without diagnosis of hypertension (principal)
CPT/HCPCS: 80048